=== PATIENT | male | born 1930 | race Caucasian/White ===

== ENCOUNTER 2016-10-24 14:47 | Emergency (ER) | payer MEDICARE, OTHER ==
[2016-09-03 10:34] VITALS: BMI 24.4
[~2016-10-24 14:47] MED LIST: CELEXA10 MG PO; SYNTHROID50 MCG PO
[2016-10-24 16:24] LABS: BASOPHILS 0.2 % (0.0-2.0); EOSINOPHILS 0.2 % (0-7); HEMATOCRIT 39.3 % (42.0-54.0); HEMOGLOBIN 12.6 g/dL (13.5-17.5); IMMATURE GRANULOCYTES 0.4 % (0-5); MCH 29.6 pg (26.0-34.0); MCHC 32.1 g/dL (31.0-37.0); MCV 92.3 fL (80.0-100.0); MEAN PLATELET VOLUME 10.4 fL (7.4-10.4); MONOCYTES 9.3 % (2-11); NEUTROPHILS 78.9 % (40-80); RBC 4.26 10x6/uL (4.20-6.10); RDW 13.7 % (11.5-14.5); WBC 5.1 10x3/uL (4.8-10.8)
[2016-10-24 16:29] LABS: PLATELET COUNT 65 10x3/uL (130-400)
[2016-10-24 16:32] LABS: CALC OSMOLALITY 279 mosm/kg (275-300); CALCIUM 8.2 mg/dL (8.5-10.1); CARBON DIOXIDE 30.1 mmol/L (21.0-32.0); CHLORIDE - SERUM 103 mmol/L (98-107); CREATININE - SERUM 0.9 mg/dL (0.6-1.3); GLUCOSE 120 mg/dL (74-106); POTASSIUM - SERUM 4.1 mmol/L (3.5-5.1); SODIUM 139 mmol/L (136-145); UREA NITROGEN 16 mg/dL (7-18); eGFR NON AFRICAN AMERICAN 85 mL/min (90-120)
[2016-10-24 16:41] LABS: PLATELET ESTIMATE DECREASED
== END 2016-10-24 18:00 | disposition home or self-care (01) ==
LOC: D.ER 14:47
PROVIDERS: Family Medicine
DX: M25.552 Pain in left hip (principal); M25.551 Pain in right hip; W01.0XXA Fall on same level from slipping, tripping and stumbling without subsequent striking against object, initial encounter; Y93.89 Activity, other specified; Y92.019 Unspecified place in single-family (private) house as the place of occurrence of the external cause; F41.9 Anxiety disorder, unspecified; C32.9 Malignant neoplasm of larynx, unspecified; E05.90 Thyrotoxicosis, unspecified without thyrotoxic crisis or storm; G25.81 Restless legs syndrome

== ENCOUNTER 2016-12-02 04:01 | Emergency (ER) | payer MEDICARE, OTHER ==
[2016-09-03 10:34] VITALS: BMI 24.4
[2016-12-02 05:37] LABS: APTT 26.6 SECONDS (22.8-39.4); BASOPHILS 0.1 % (0.0-2.0); EOSINOPHILS 0.2 % (0-7); HEMATOCRIT 40.4 % (42.0-54.0); HEMOGLOBIN 12.5 g/dL (13.5-17.5); IMMATURE GRANULOCYTES 0.4 % (0-5); INR 0.96 (0.85-1.17); LYMPHOCYTES 13.8 % (15-50); MCH 28.2 pg (26.0-34.0); MCHC 30.9 g/dL (31.0-37.0); MEAN PLATELET VOLUME 10.1 fL (7.4-10.4); MONOCYTES 6.7 % (2-11); NEUTROPHILS 78.8 % (40-80); PROTIME 12.6 SECONDS (11.6-15.0); RBC 4.44 10x6/uL (4.20-6.10); RDW 14.1 % (11.5-14.5); WBC 9.9 10x3/uL (4.8-10.8)
[2016-12-02 05:45] LABS: ALBUMIN 3.8 g/dL (3.4-5.0); ALKALINE PHOSPHATASE 40 U/L (46-116); ALT (SGPT) 25 U/L (10-68); CALC OSMOLALITY 284 mosm/kg (275-300); CALCIUM 8.2 mg/dL (8.5-10.1); CARBON DIOXIDE 29.3 mmol/L (21.0-32.0); CHLORIDE - SERUM 103 mmol/L (98-107); CREATININE - SERUM 0.8 mg/dL (0.6-1.3); GLUCOSE 144 mg/dL (74-106); POTASSIUM - SERUM 3.6 mmol/L (3.5-5.1); PROTEIN - SERUM 6.7 g/dL (6.4-8.2); SODIUM 141 mmol/L (136-145); UREA NITROGEN 15 mg/dL (7-18); eGFR NON AFRICAN AMERICAN > 90 mL/min (90-120)
[2016-12-02 05:48] LABS: PLATELET COUNT 113 10x3/uL (130-400)
== END 2016-12-02 10:03 | disposition home or self-care (01) ==
LOC: D.ER 04:01
PROVIDERS: Surgery
DX: S12.401A Unspecified nondisplaced fracture of fifth cervical vertebra, initial encounter for closed fracture (principal); W19.XXXA Unspecified fall, initial encounter; Y93.89 Activity, other specified; Y92.012 Bathroom of single-family (private) house as the place of occurrence of the external cause; S01.81XA Laceration without foreign body of other part of head, initial encounter; S00.11XA Contusion of right eyelid and periocular area, initial encounter; C32.9 Malignant neoplasm of larynx, unspecified; E05.90 Thyrotoxicosis, unspecified without thyrotoxic crisis or storm; G25.81 Restless legs syndrome

== ENCOUNTER → 2017-01-16 10:39 | Outpatient (CLI) | payer MEDICARE, OTHER ==
[2016-09-03 10:34] VITALS: BMI 24.4
[~2017-01-16 10:39] MED LIST changes: +HYDROCODON-ACE1 EAC7 PO
== END | disposition home or self-care (01) ==
LOC: D.LAB 01-15 15:30
DX: N39.0 Urinary tract infection, site not specified (principal)

== ENCOUNTER 2017-01-17 07:45 | Outpatient (CLI) | payer MEDICARE, OTHER ==
[2017-01-16 11:38] LABS: APPEARANCE CLEAR (CLEAR); BILIRUBIN NEGATIVE (NEGATIVE); COLOR YELLOW (YELLOW); GLUCOSE NEGATIVE (NEGATIVE); KETONE NEGATIVE (NEGATIVE); LEUKOCYTE ESTERASE NEGATIVE (NEGATIVE); NITRITE NEGATIVE (NEGATIVE); PROTEIN NEGATIVE (NEGATIVE); UROBILINOGEN NORMAL (NORMAL)
[~2017-01-17] VITALS: Ht 185.4 cm; Wt 79.5 kg
--- NOTE | ~2017-01-17 | HEMODYNAMI ---
PATIENT:THELMA AUGUSTINE MEDICAL RECORD: [id number] : 30 LOCATION:[facility] ADMISSION DATE: 01/17/17 Generatedon:01/17/201711:17 Patient name: THELMA AUGUSTINE Patient #: [id number] SSN: : 1930 Date of study: 01/17/2017 Page: Of Hemodynamic Procedure Report Patient Data Patient Demographics Procedure consent was obtained First Name: THELMA Gender: Male Last Name: DAVIDE : 1930 Middle Initial: CARLEE Age: 86 year(s) Patient #: [id number] Race: Unknown Additional ID: [id number] Contact details Address: [address] [place] [address] State: [place] City: [facility] Zip code: [address] Admission Admission Data Admission Date: 01/17/2017 Admission Time: 7:45 Procedure Procedure Types Cath Procedure Peripheral Cath Diagnostic Procedure Kyphoplasty Kyphoplasty Thoracic Procedure Description Procedure Date Procedure Date: 01/17/2017 Procedure Start Time: 10:30 Procedure Staff Name Function Dick Barkley MD Performing Physician Jumana Coelho RT Scrub Jan Pradhan RT Monitor Luz Haq RN Nurse Jumana Deras RN Nurse Procedure Data Cath Procedure Fluoroscopy Diagnostic fluoroscopy Total fluoroscopy Time: 8.2 time: 8.2 min min Diagnostic fluoroscopy Total fluoroscopy dose: dose: 3189 mGy 3189 mGy Procedure Medications Medication Administration Route Dosage Oxygen NC 10 l/min Ancef (1Gm/50ml NS) I.V.P.B 1 g Hemodynamics Rest Heart Rate: 77 (bpm) Snapshots Pre Cath Intra NCS Post Cath Vital Signs Time Heart Resp SPO2 NIBP (mmHg) Rhythm Pain Sedation Rate (ipm) (%) Status Level (bpm) 9:59:04 Aborted NSR 0 (11) 10(A) , No pain 10:04:03 Measuring NSR 0 (11) 10(A) , No pain 10:05:21 Disturbed NSR 0 (11) 10(A) , No pain 10:09:41 77 14 100 146/104(131) NSR 0 (11) 10(A) , No pain 10:13:57 68 18 97 128/68(98) NSR 0 (11) 10(A) , No pain 10:18:15 74 18 98 124/80(106) NSR 0 (11) 10(A) , No pain 10:22:31 94 120/68(104) NSR 0 (11) 10(A) , No pain 10:26:43 98 126/74(99) NSR 0 (11) 10(A) , No pain 10:30:53 78 18 98 133/82(108) NSR 0 (11) 10(A) , No pain 10:35:07 78 15 97 150/84(115) NSR 0 (11) 10(A) , No pain 10:39:25 80 19 98 154/89(129) NSR 0 (11) 10(A) , No pain 10:43:45 78 19 98 150/88(125) NSR 0 (11) 10(A) , No pain 10:48:01 79 20 98 153/92(117) NSR 0 (11) 10(A) , No pain 10:52:17 82 20 98 169/101(142) NSR 0 (11) 10(A) , No pain 10:56:40 83 20 98 171/106(146) NSR 0 (11) 10(A) , No pain 11:01:02 85 19 98 159/96(130) NSR 0 (11) 10(A) , No pain 11:05:20 82 16 98 170/104(146) NSR 0 (11) 10(A) , No pain 11:09:40 82 17 98 168/103(147) NSR 0 (11) 10(A) , No pain 11:14:00 79 17 98 159/93(129) NSR 0 (11) 10(A) , No pain Medications Time Medication Route Dose Verified Delivered Reason Notes Effectiv eness by by 10:11:41 Oxygen NC 10 Jumana Jumana used for l/min Augusta Augusta baker second RN 10:14:29 Ancef I.V.P.B 1 g Jumana Jumana Per (1Gm/50ml Augusta Augusta physician RADHA) RN returned item clerk Log Time Note 9:57:53 Luz Haq RN sent for patient. Start room use. :58: Time tracking: Regular hours :58:17 Plan of Care:Hemodynamics will remain stable., Cardiac rhythm will remain stable., Comfort level will be maintained., Respiratory function will remain adequate., Patient/ family verbilizes understanding of procedure., Procedure tolerated without complication., Recovers from procedure without complications.. 9:58:27 Patient received from Outpatients to IR Alert and oriented. Tansferred to table in Prone position. 9:58:29 Correct patient and procedure confirmed by team. 9:58:34 Correct patient and procedure confirmed by team. 9:58:35 Signed procedure consent form obtained from patient. 9:58:41 ECG and BP/O2 sat monitors applied to patient. 9:59:09 Use device set IR Diagnostic 9:59:10 Sterile Angiographic Pack opened to sterile field. 9:59:11 Bag Decanter opened to sterile field. 10:03:23 - 10:03:36 SEE ANESTHESIA FOR PRE PROCEDURE TIVA 10:03:45 - 10:09:17 ECG and BP/O2 sat monitors applied to patient. 10:09:21 Baseline sample Acquired. 10:09:25 Rhythm: sinus rhythm 10:09:36 Patient pain scale 0/10 NO PAIN. 10::39 Sharps counted by scrub and verified by R.N. 10:09:39 Alarms reviewed by R. N. 10:09:47 Thoracic area was prepped with chlora-prep and draped in sterile fashio n 10:11:41 Oxygen 10 l/min NC was administered by Jumana Deras RN; used for procedure; 10:14:29 Ancef (1Gm/50ml NS) 1 g I.V.P.B was administered by Jumana Deras RN ; Per physician; ::37 Physician arrived 10::37 --------ALL STOP TIME OUT------ 10::38 Final Timeout: patient, procedure, and site verified with staff and physician. All members of the team are in agreement. 10:29:42 Thoracic site verified by team. 10:29:55 Physical assessment completed. ASA score P 2 - A patient with mild systemic disease as per Dick Barkley MD. 10:30:02 Sedation plan: TIVA Propofol 10::21 Procedure started. 10:30:21 Full Disclosure recording started 10:30:47 Local anesthetic to right popliteal artery with Lidocaine 1% by Dick Barkley MD.INITIAL ACCESS ONLY 10:31:06 Kyphon Epress Kit 15/2 opened to sterile field. 10:31:09 Kyphon BONE BX DEVICE SZ2 opened to sterile field. 10:31:17 Kyphon BRICKLAYER HELPER KIT opened to sterile field. 11:04:13 Timer 1 started at 11:03 AM, stopped at 11:04 AM, duration 00:00:19 sec . 11:05:21 Procedure ended.(Physican Out) 11:06:00 Fluoroscopy time 08.20 minutes. 11:06:06 Flurop Dose total: 3189 11:06:06 Fluoroscopy dose: 3189 mGy 11:06:09 Sharps counted by scrub and verified by R.N. 11:06:19 Post Thoracic area:stable 11:06:27 Post-procedure physical assessment completed. ASA score P 2 - A patient with mild systemic disease as per Dick Barkley MD. 11:15:44 Post procedure instruction explained to patient.Patient verbalizes understanding. 11:15:45 Procedure and supply charges have been captured, reviewed, submitted an d are correct. 11:15:53 Report given to Outpatients. 11:15:59 Patient transfered to Outpatients with Bed. 11:17:18 Vital chart was stopped Device Usage Item Name Manufacture Quantity Catalog Hospital Part Current Minimal Lot# / Number Charge Number Stock Stock Serial# Code Sterile Cardinal 1 [id number] 5 Angiographic Health Pack Bag Decanter Microtek 1 [id number] 5 [employer] Kyphon Medtronic 1 [id number] 5 Epress Kit / Kyphon BONE Medtronic 1 [id number] 5 BX DEVICE SZ2 Kyphon Medtronic 1 [id number] 5 BRICKLAYER HELPER KIT Signature Audit Evangeline Stage Time Signature Unsigned Intra-Procedure 01/17/2017 Jan 11:17:15 AM Carolynn RT (R) (CV) Signatures Monitor : Jan Signature : Carolynn RT Date : Time : [address] [id number]
[~2017-01-17 07:45] MED LIST changes: -HYDROCODON-ACE1 EAC7 PO
[2017-01-17] MEDS ORDERED: HYDROCODON-ACE1 EAC7 PO (08:36)
[2017-01-17 08:41] VITALS: BP 137/77; Ht 185.4 cm; Wt 79.5 kg
[2017-01-17 09:02] LABS: BASOPHILS 0 % (0-2); EOSINOPHILS 2.5 % (0-7); HEMATOCRIT 36.7 % (42.0-54.0); HEMOGLOBIN 11.4 g/dL (13.5-17.5); IMMATURE GRANULOCYTES 0.2 % (0-5); LYMPHOCYTES 24.7 % (15-50); MCH 27.6 pg (26.0-34.0); MCHC 31.1 g/dL (31.0-37.0); MCV 88.9 fL (80.0-100.0); MEAN PLATELET VOLUME 9.9 fL (7.4-10.4); NEUTROPHILS 65.6 % (40-80); PLATELET COUNT 121 10x3/uL (130-400); RBC 4.13 10x6/uL (4.20-6.10); RDW 13.3 % (11.5-14.5); WBC 4.5 10x3/uL (4.8-10.8)
[2017-01-17 09:15] LABS: CALC OSMOLALITY 283 mosm/kg (275-300); CALCIUM 8.7 mg/dL (8.5-10.1); CARBON DIOXIDE 29.8 mmol/L (21.0-32.0); CHLORIDE - SERUM 107 mmol/L (98-107); CREATININE - SERUM 0.8 mg/dL (0.6-1.3); POTASSIUM - SERUM 3.9 mmol/L (3.5-5.1); SODIUM 142 mmol/L (136-145); UREA NITROGEN 15 mg/dL (7-18); eGFR NON AFRICAN AMERICAN > 90 mL/min (90-120)
[2017-01-17 09:24] LABS: GLUCOSE 96 mg/dL (74-106)
[2017-01-17 09:33] LABS: APTT 27.4 SECONDS (22.8-39.4); INR 0.99 (0.85-1.17)
--- NOTE | 2017-01-17 17:01 | NUR ---
1400 IV DC WITH CATHER TIP INTACT
--- NOTE | 2017-01-17 17:02 | NUR ---
1400 VS TAKEN AND PLACED ON POST OP SHEET
== END 2017-01-17 14:15 | disposition home or self-care (01) ==
LOC: D.OPS 07:45 → D.SP 10:00 → D.OPS 10:00
PROVIDERS: General Practice; Radiology Diagnostic Radiology
DX: S22.089A Unspecified fracture of T11-T12 vertebra, initial encounter for closed fracture (principal)

== ENCOUNTER → 2018-09-01 12:13 | Outpatient (CLI) | payer MEDICARE, OTHER ==
[2017-01-17 08:41] VITALS: BMI 23.1
[~2018-09-01 12:13] MED LIST changes: +HYDROCODON-ACE1 EAC7 PO
== END | disposition home or self-care (01) ==
LOC: D.RAD 12:13
DX: R05 Cough (principal)

== ENCOUNTER 2018-09-18 07:30 | Day surgery (SDC) | payer MEDICARE, OTHER ==
[~2018-09-18] VITALS: Ht 185.4 cm; Wt 82.7 kg
[2018-09-18 13:27] VITALS: BP 162/101; Ht 185.4 cm; Wt 82.7 kg
[2018-09-18 13:32] LABS: BASOPHILS 0.2 % (0-2); HEMATOCRIT 41.7 % (42.0-54.0); HEMOGLOBIN 13.3 g/dL (13.5-17.5); LYMPHOCYTES 23.4 % (15-50); MCH 27.8 pg (26.0-34.0); MCHC 31.9 g/dL (31.0-37.0); MCV 87.1 fL (80.0-100.0); MONOCYTES 8.2 % (2-11); NEUTROPHILS 66.2 % (40-80); PLATELET COUNT 136 10x3/uL (130-400); RBC 4.79 10x6/uL (4.20-6.10); RDW 13.7 % (11.5-14.5); WBC 6.6 10x3/uL (4.8-10.8)
[2018-09-18 13:42] LABS: CALC OSMOLALITY 276 mosm/kg (275-300); CALCIUM 8.8 mg/dL (8.5-10.1); CARBON DIOXIDE 29.4 mmol/L (21.0-32.0); CHLORIDE - SERUM 101 mmol/L (98-107); CREATININE - SERUM 0.8 mg/dL (0.6-1.3); GLUCOSE 90 mg/dL (74-106); POTASSIUM - SERUM 4.2 mmol/L (3.5-5.1); SODIUM 138 mmol/L (136-145); UREA NITROGEN 15 mg/dL (7-18); eGFR NON AFRICAN AMERICAN > 90 mL/min (90-120)
--- NOTE | 2018-09-18 14:30 | NUR ---
REC'D FROM SURGERY. FAMILY AT BEDSIDE. PAULA AND KAREN CORRAL SERVED.
--- NOTE | 2018-09-18 14:50 | NUR ---
CALLED DR WORLEY'S OFFICE REGARDING PATIENT VOIDING BEFORE DC D/T SURGERY DRAINING BLADDER RIGHT BEFORE BRING TO OUTPATIENT. DR WORLEY RELATED HE DOES NOT HAVE TO VOID PRIOR TO DC. RELATES NOTHING LEFT TO DRAIN.
--- NOTE | 2018-09-18 15:00 | NUR ---
TOLERATED FL TRAY. IV DC'D WITH CATHETER INTACT.
--- NOTE | 2018-09-18 15:25 | NUR ---
WRITTEN AND VERBAL DC INST. GIVEN TO PT. VERBALIZED UNDERSTANDING.
--- NOTE | 2018-09-18 15:30 | NUR ---
DC'D HOME WITH FAMILY VIA PRIVATE VEHICLE. TAKEN TO VEHICLE VIA WC. STABLE AT TIME OF DC.
--- NOTE | 2018-09-19 10:22 | OP ---
PATIENT NAME: THELMA AUGUSTINE MEDICAL RECORD: [id number] :[birth year] LOCATION:[facility] ADMISSION DATE: SURGEON: DOMINIK WORLEY MD DATE OF OPERATION: 09/18/2018 SURGEON: Dominik Worley MD ANESTHESIA: TIVA by Venancio Wilson CRNA DIAGNOSIS: Elevated PSA at 12.46. PROCEDURES: Transrectal ultrasound and prostate biopsy. FINDINGS: Twenty six-gram prostate with intraprostatic calcifications and hypoechoic areas. SPECIMENS: Prostate biopsy cores. BLOOD LOSS: Minimal. CLINICAL HISTORY: This is an 87-year-old male who was found to have an elevated PSA of 12.46 on 07/04/2017. He comes to have this evaluated with a prostate biopsy. There is no family history of prostate cancer. He does not have any significant voiding symptoms. HE IS ALLERGIC TO TETANUS AND DIPHTHERIA TOXOID. He was given Ancef on-call to the OR. DESCRIPTION OF PROCEDURE: The patient was given IV sedation. He was then placed into dorsal lithotomy position. The transrectal ultrasound probe was introduced and prostate size measurements were obtained. The first time we ran the prostate size measurements, we obtained a value of 24 grams. We tried it again and obtained a value of 26 grams. Therefore, his prostate size thus seemed to be within the 20-gram to 30-gram range. Internal hypoechoic areas were seen as well as prostatic stones. Sextant biopsies were obtained with at least 3 specimens from each sextant. The right side of the prostate seems to be far larger than the left side of the prostate. Once all the specimens were obtained, the procedure was terminated. The patient's bladder was seen to be full on the ultrasound. We inserted a 14-Kazakh red rubber catheter to drain the bladder. I will see the patient in followup next week to review the pathology results with him. The catheterization was only an in-and-out catheterization. TRANSINT:[id number] Voice Confirmation ID: [id number] DOCUMENT ID: [id number] DOMINIK WORLEY MD at 1022 CC: [id number] DICTATION DATE: 09/18/18 1428 TRANSMISSION INSPECTOR: 09/18/18 1849 [facility] 09/18/18 [place] [address]
== END 2018-09-18 15:30 | disposition home or self-care (01) ==
LOC: D.OPS 07:30 → D.PAN 11:30 → D.OPS 11:30
PROVIDERS: Anesthesiology
DX: C61 Malignant neoplasm of prostate (principal); Z01.812 Encounter for preprocedural laboratory examination

== ENCOUNTER → 2018-10-03 08:14 | Outpatient (CLI) | payer MEDICARE, OTHER ==
[2018-09-18 13:27] VITALS: BMI 24.0
== END | disposition home or self-care (01) ==
LOC: D.NM 08:14
DX: C61 Malignant neoplasm of prostate (principal)

== ENCOUNTER → 2019-03-11 08:42 | Outpatient (CLI) | payer MEDICARE, OTHER ==
[2018-09-18 13:27] VITALS: BMI 24.0
[2019-03-13 20:07] LABS: CYCLIC CITRULL PEPTIDE IGG/IGA 3 units (0-19)
[2019-03-16 15:11] LABS: ANCA - ANTIMYELOPEROXIDASE <9.0 U/mL (0.0-9.0); ANCA - ANTIPROTEINASE 3 <3.5 U/mL (0.0-3.5); ANCA - ATYPICAL <1:20 titer (Neg:<1:20); ANCA - CYTOPLASMIC <1:20 titer (Neg:<1:20); ANCA - PERINUCLEAR <1:20 titer (Neg:<1:20)
== END | disposition home or self-care (01) ==
LOC: D.RT 08:42
PROVIDERS: ATTEND Internal Medicine Pulmonary Disease
DX: J44.9 Chronic obstructive pulmonary disease, unspecified (principal)

== ENCOUNTER 2019-04-27 08:00 | Outpatient (CLI) | payer MEDICARE, OTHER ==
[2018-09-18 13:27] VITALS: BMI 24.0
== END 2019-04-27 23:59 | disposition home or self-care (01) ==
LOC: D.MAMMO 08:00
PROVIDERS: ATTEND Nurse Practitioner Family
DX: N63.0 Unspecified lump in unspecified breast (principal); N64.4 Mastodynia

== ENCOUNTER → 2019-07-13 09:37 | Outpatient (CLI) | payer MEDICARE, OTHER ==
[2018-09-18 13:27] VITALS: BMI 24.0
== END | disposition home or self-care (01) ==
LOC: D.CT 09:37
PROVIDERS: ATTEND Internal Medicine Pulmonary Disease
DX: R93.89 Abnormal findings on diagnostic imaging of other specified body structures (principal)

== ENCOUNTER 2019-09-24 15:18 | Inpatient (IN) | payer MEDICARE, OTHER ==
[~2019-09-24] VITALS: Ht 185.4 cm; Wt 81.8 kg
[2019-09-24] MEDS ORDERED: FUROSEMIDE20 MG PO (15:27)
[2019-09-24 15:44] LABS: BASOPHILS 0.1 % (0-2); EOSINOPHILS 1.5 % (0-7); HEMOGLOBIN 12.3 g/dL (13.5-17.5); IMMATURE GRANULOCYTES 0.1 % (0-5); LYMPHOCYTES 13.4 % (15-50); MCH 28.3 pg (26.0-34.0); MCHC 31.5 g/dL (31.0-37.0); MCV 89.9 fL (80.0-100.0); MEAN PLATELET VOLUME 9.4 fL (7.4-10.4); MONOCYTES 7.4 % (2-11); NEUTROPHILS 77.5 % (40-80); RBC 4.34 10x6/uL (4.20-6.10); RDW 14.7 % (11.5-14.5); WBC 6.9 10x3/uL (4.8-10.8)
[2019-09-24 15:47] LABS: PLATELET COUNT 101 10x3/uL (130-400)
[2019-09-24 15:58] LABS: INR 1.18 (0.85-1.17)
[2019-09-24 16:01] LABS: CALC OSMOLALITY 282 mosm/kg (275-300); CARBON DIOXIDE 30.8 mmol/L (21.0-32.0); CHLORIDE - SERUM 105 mmol/L (98-107); CREATININE - SERUM 0.9 mg/dL (0.6-1.3); GLUCOSE 103 mg/dL (74-106); POTASSIUM - SERUM 4.2 mmol/L (3.5-5.1); SODIUM 142 mmol/L (136-145); UREA NITROGEN 13 mg/dL (7-18); eGFR NON AFRICAN AMERICAN 84 mL/min (90-120)
[2019-09-24 16:16] LABS: ALBUMIN 3.7 g/dL (3.4-5.0); ALKALINE PHOSPHATASE 79 U/L (46-116); ALT (SGPT) 19 U/L (10-68); CREATINE KINASE 72 UL (21-232); PRO BNP 6117 pg/mL (0-450); PROTEIN - SERUM 6.9 g/dL (6.4-8.2); TROPONIN-I 0.016 ng/mL (0.000-0.060)
--- NOTE | 2019-09-24 18:27 | NUR ---
INFLUENZA SWAB SENT TO LAB AT THIS TIME
[2019-09-24 21:25] VITALS: BP 134/89
--- NOTE | 2019-09-24 22:03 | NUR ---
RECIEVED REPORT FROM QASIM PICKARD, ER NURSE.
[2019-09-24] MEDS ORDERED: SYNTHROID25 MCG PO (22:07)
[2019-09-24] MEDS ORDERED: K-DUR20 MEQ PO (22:09)
--- NOTE | 2019-09-24 22:30 | NUR ---
RECIEVED PT TO 2121 FROM ER VIA . PT A&O. RESPERATIONS EVEN ON O2 AT 2 LITERS VIA ND. IV TO LEFT AC WITH ZITHROMAX INFUSING, IV SITE CLEAN AND DRY. HISTORY AND MED REC OBTAINED. FRESH ICE WATER GIVEN, PERSONAL BELONGINGS PLACED IN CLOSET, PT DECLINED TO HAVE VALUABLES LOCK IN ER SAFE. PT DENIES PAIN OR NEEDS, BED LOW, CL IN REACH.
[2019-09-25 01:48] VITALS: BMI 24.4
[2019-09-25 06:01] LABS: BASOPHILS 0 % (0-2); EOSINOPHILS 0 % (0-7); HEMATOCRIT 37.2 % (42.0-54.0); HEMOGLOBIN 11.6 g/dL (13.5-17.5); LYMPHOCYTES 8.7 % (15-50); MCH 27.8 pg (26.0-34.0); MCHC 31.2 g/dL (31.0-37.0); MCV 89.2 fL (80.0-100.0); MONOCYTES 0.6 % (2-11); NEUTROPHILS 90.7 % (40-80); PLATELET COUNT 104 10x3/uL (130-400); RBC 4.17 10x6/uL (4.20-6.10)
[2019-09-25 06:07] LABS: WBC 4.8 10x3/uL (4.8-10.8)
[2019-09-25 06:26] LABS: CALC OSMOLALITY 285 mosm/kg (275-300); CARBON DIOXIDE 26.2 mmol/L (21.0-32.0); CHLORIDE - SERUM 106 mmol/L (98-107); CREATININE - SERUM 0.8 mg/dL (0.6-1.3); GLUCOSE 140 mg/dL (74-106); SODIUM 142 mmol/L (136-145); UREA NITROGEN 15 mg/dL (7-18); eGFR NON AFRICAN AMERICAN > 90 mL/min (90-120)
--- NOTE | 2019-09-25 08:05 | NUR ---
ASSEESSMENT DONE. DENIES NEEDS
[2019-09-25 08:48] VITALS: BP 118/69
--- NOTE | 2019-09-25 09:21 | NUR ---
I have reviewed this patient and I concur with the Shift Assessment completed by the Licensed Practical Nurse today this shift.
[2019-09-25 12:26] VITALS: BP 135/84
[2019-09-25 13:18] VITALS: Ht 185.4 cm; Wt 81.8 kg
[2019-09-25 16:02] VITALS: BP 150/94
--- NOTE | 2019-09-25 19:15 | NUR ---
RECEIVED REPORT, WILL ASSUME CARE OF PT, PT DOESNT UNDERSTAND WHY HE IS HERE, EXPLAINED HE IS HERE FOR PNA, SR-91, LAC @50, WANTS TO BE SL WHEN ANTIBONIC IS COMPLETE, BED IS LOW, SRX2, CALL LIGHT IN REACH, WILL CONTINUE PLAN OF CARE
[2019-09-25 20:00] VITALS: BP 126/81
[2019-09-26 04:00] VITALS: BP 134/83
--- NOTE | 2019-09-26 05:11 | NUR ---
I have reviewed this patient and I concur with the Shift Assessment completed by the Licensed Practical Nurse today this shift.
[2019-09-26 05:19] LABS: BASOPHILS 0 % (0-2); EOSINOPHILS 0 % (0-7); HEMATOCRIT 35.5 % (42.0-54.0); HEMOGLOBIN 11.2 g/dL (13.5-17.5); IMMATURE GRANULOCYTES 0.2 % (0-5); LYMPHOCYTES 6.9 % (15-50); MCH 28.1 pg (26.0-34.0); MCHC 31.5 g/dL (31.0-37.0); MEAN PLATELET VOLUME 9.8 fL (7.4-10.4); MONOCYTES 4.3 % (2-11); NEUTROPHILS 88.6 % (40-80); PLATELET COUNT 93 10x3/uL (130-400); RBC 3.99 10x6/uL (4.20-6.10); RDW 15.1 % (11.5-14.5)
[2019-09-26 05:21] LABS: WBC 8.1 10x3/uL (4.8-10.8)
[2019-09-26 05:34] LABS: PLATELET ESTIMATE DECREASED
[2019-09-26 05:54] LABS: CALC OSMOLALITY 287 mosm/kg (275-300); CALCIUM 8.3 mg/dL (8.5-10.1); CARBON DIOXIDE 28.4 mmol/L (21.0-32.0); CHLORIDE - SERUM 107 mmol/L (98-107); CREATININE - SERUM 0.8 mg/dL (0.6-1.3); GLUCOSE 134 mg/dL (74-106); POTASSIUM - SERUM 4.1 mmol/L (3.5-5.1); PRO BNP 9066 pg/mL (0-450); SODIUM 142 mmol/L (136-145); eGFR NON AFRICAN AMERICAN > 90 mL/min (90-120)
[2019-09-26 05:57] LABS: UREA NITROGEN 20 mg/dL (7-18)
--- NOTE | 2019-09-26 07:50 | NUR ---
ALERT AND ORIENTED. TELEMERTY SHOWS SR. LEFT AC SL. DENIES ANY NEEDS. SR UP WITH CALL LIGHT IN REACH. WILL MONITOR
[2019-09-26 10:12] VITALS: BP 114/91
[2019-09-26] MEDS ORDERED: MEDROL DOSE PACK4 MG PO (12:07)
[2019-09-26] MEDS ORDERED: ZPAK PO (12:07)
--- NOTE | 2019-09-26 12:46 | NUR ---
PT UNSURE OF NAME OF NEBULIZED MEDICATION HE USES AT HOME. STATES "THEY SEND IT FROM [facility]".
--- NOTE | 2019-09-26 12:53 | MORECARE ---
CASE MANAGEMENT DISCHARGE SUMMARY PATIENT: THELMA AUGUSTINE UNIT: [id number] ADM DATE: 09/24/19 AGE: 88 : 30 SEX: M ROOM/BED: D.2122 AUTHOR: PHILIPPE ALEJANDRA PHYSICIAN: REFERRING PHYSICIAN: THUAN ANDUJAR MD DATE OF SERVICE: 09/26/19 Discharge Plan Patient Name: THELMA AUGUSTINE [facility] [facility] 1930 Planned Disposition: Anticipated Discharge Date: Discharge Date: Expected LOS: Initial Reviewer: [email or web address] Initial Review Date: 09/26/2019 Generated: 09/26/19 1:53 pm DCPIA - Discharge Planning Initial Assessment Updated by [email or web address]: Amy Denson on 09/26/19 12:52 pm * Is the patient Alert and Oriented? Yes * PCP IAN * Preadmission Environment Home with Family * ADLs Independent * Other Equipment 02, PORT, [facility] * Community resources currently utilized None * Additional services required to return to the preadmission environment? No * Can the patient safely return to the preadmission environment? Yes * Has this patient been hospitalized within the prior 30 days at any hospital? No Patient Name: THELMA AUGUSTINE Page 52424 at 1253 All edits/amendments must be made on the electronic document DICTATION DATE: 09/26/19 1253 ELECTRICAL LOGGING ENGINEER: MARY 09/26/19 1253 RPT#: [id number] DC DATE: STATUS: ADM IN [facility] [address] [place] [address] END OF REPORT
--- NOTE | 2019-09-26 13:00 | MORECARE ---
CASE MANAGEMENT DISCHARGE SUMMARY PATIENT: THELMA AUGUSTINE UNIT: [id number] ADM DATE: 09/24/19 AGE: 88 : 30 SEX: M ROOM/BED: D.2122 AUTHOR: PHILIPPE ALEJANDRA PHYSICIAN: REFERRING PHYSICIAN: THUAN ANDUJAR MD DATE OF SERVICE: 09/26/19 Discharge Plan Patient Name: THELMA AUGUSTINE Facility: [facility]:[place] : 1930 Planned Disposition: Anticipated Discharge Date: Discharge Date: Expected LOS: Initial Reviewer: [email or web address] Initial Review Date: 09/26/2019 Generated: 09/26/19 2:00 pm Comments DCP- Discharge Planning Updated by [email or web address]: Amy Denson on 09/26/19 11:[address] Patient Name: THELMA AUGUSTINE Admission Status: ER Accout number: [id number] Admission Date: 09-24-2019 : 1930 Admission Diagnosis: Attending: THUAN ANDUJAR Current LOS: 2 Anticipated DC Date: Planned Disposition: Primary Insurance: MEDICARE A & B Discharge Planning Comments: CM MET WITH PATIENT AFTER OBTAINING VERBAL CONSENT. STATES PLANS TO DC TO HOME TODAY WITH . DENIES NEEDS FOR HH, REHAB OR EQUIPMENT. STATES WILL NEED TO TAKE A TAXI HOME BECAUSE HIM AND HIS DO NOT DRIVE. RN WILL NEED TO CALL TAXI FOR HIM. HE LIVES AT [facility]. Ssn/Ssbn Weapons Equipment Operator: Amy Denson DCPIA - Discharge Planning Initial Assessment Updated by [email or web address]: Amy Denson on 09/26/19 12:52 pm * Is the patient Alert and Oriented? Yes * PCP IAN * Preadmission Environment Home with Family * ADLs Independent * Other Equipment 02, PORT, [facility] * Community resources currently utilized None * Additional services required to return to the preadmission environment? No * Can the patient safely return to the preadmission environment? Yes * Has this patient been hospitalized within the prior 30 days at any hospital? No Last DP export: 09/26/19 11:53 a Patient Name: THELMA AUGUSTINE Page 99630 at 1300 All edits/amendments must be made on the electronic document DICTATION DATE: 09/26/19 1300 MEDICAL REFERRAL COORDINATOR: MARY 09/26/19 1300 RPT#: [id number] DC DATE: STATUS: ADM IN [facility] [address] [place] [address] END OF REPORT
--- NOTE | 2019-09-26 13:00 | NUR ---
I have reviewed this patient and I concur with the Shift Assessment completed by the Licensed Practical Nurse today this shift.
--- NOTE | 2019-09-26 13:23 | NUR ---
PT DISCHARGED. IV DCD WITH TIP INTACT. INSTRUCTIONS GIVEN TO PT. TO PRIVATE CAR PER WHEELCHAIR
--- NOTE | 2019-09-26 16:09 | MORECARE ---
CASE MANAGEMENT DISCHARGE SUMMARY PATIENT: THELMA AUGUSTINE UNIT: [id number] ADM DATE: 09/24/19 AGE: 88 : 30 SEX: M ROOM/BED: D.2122 AUTHOR: PHILIPPE ALEJANDRA PHYSICIAN: REFERRING PHYSICIAN: THUAN ANDUJAR MD DATE OF SERVICE: 09/26/19 Discharge Plan Patient Name: THELMA AUGUSTINE Facility: [facility]:[place] : 1930 Planned Disposition: Anticipated Discharge Date: Discharge Date: 09/26/2019 Expected LOS: Initial Reviewer: [email or web address] Initial Review Date: 09/26/2019 Generated: 09/26/19 5:09 pm Comments DCP- Discharge Planning Updated by [email or web address]: Amy Denson on 09/26/19 11:[address] Patient Name: THELMA AUGUSTINE Admission Status: ER Accout number: [id number] Admission Date: 09-24-2019 : 1930 Admission Diagnosis: Attending: THUAN ANDUJAR Current LOS: 2 Anticipated DC Date: Planned Disposition: Primary Insurance: MEDICARE A & B Discharge Planning Comments: CM MET WITH PATIENT AFTER OBTAINING VERBAL CONSENT. STATES PLANS TO DC TO HOME TODAY WITH . DENIES NEEDS FOR HH, REHAB OR EQUIPMENT. STATES WILL NEED TO TAKE A TAXI HOME BECAUSE HIM AND HIS DO NOT DRIVE. RN WILL NEED TO CALL TAXI FOR HIM. HE LIVES AT [facility]. Metrology Engineer: Amy Denson DCPIA - Discharge Planning Initial Assessment Updated by [email or web address]: Amy Denson on 09/26/19 12:52 pm * Is the patient Alert and Oriented? Yes * PCP IAN * Preadmission Environment Home with Family * ADLs Independent * Other Equipment 02, PORT, [facility] * Community resources currently utilized None * Additional services required to return to the preadmission environment? No * Can the patient safely return to the preadmission environment? Yes * Has this patient been hospitalized within the prior 30 days at any hospital? No Last DP export: 09/26/19 12:00 p Patient Name: THELMA AUGUSTINE Page 95176 at 1609 All edits/amendments must be made on the electronic document DICTATION DATE: 09/26/191608 FERMENTER CHAMPAGNE: MARY 09/26/19 160 RPT#: [id number] DC DATE:09/26/19 STATUS: DIS IN [facility] [address] [place] [address] END OF REPORT
== END 2019-09-26 13:29 | disposition home or self-care (01) | DRG 190 ==
LOC: D.ER 15:18 → D.M2 18:38
PROVIDERS: Family Medicine; ADMIT Family Medicine; ATTEND Family Medicine
DX: J44.0 Chronic obstructive pulmonary disease with (acute) lower respiratory infection (principal); J18.9 Pneumonia, unspecified organism; I50.9 Heart failure, unspecified

== ENCOUNTER → 2019-10-15 09:07 | Outpatient (CLI) | payer MEDICARE, OTHER ==
[2019-09-25 13:18] VITALS: BMI 24.4
[~2019-10-15 09:07] MED LIST changes: +FUROSEMIDE20 MG PO; +K-DUR20 MEQ PO; +MEDROL DOSE PACK4 MG PO; +SYNTHROID25 MCG PO; +ZPAK PO
== END | disposition home or self-care (01) ==
LOC: D.ECHO 09:00
PROVIDERS: ATTEND Internal Medicine Pulmonary Disease
DX: R06.00 Dyspnea, unspecified (principal)

== ENCOUNTER 2019-12-03 11:07 | Outpatient (CLI) | payer MEDICARE, OTHER ==
[~2019-12-03] VITALS: Ht 185.4 cm; Wt 82.7 kg
--- NOTE | ~2019-12-03 | HEMODYNAMI ---
PATIENT:THELMA AUGUSTINE MEDICAL RECORD: [id number] : 30 LOCATION:[facility] ADMISSION DATE: 12/03/19 Generatedon:12/03/201914:04 Patient name: THELMA AUGUSTINE Patient #: [id number] SSN: : 1930 Date of study: 12/03/2019 Page: Of Hemodynamic Procedure Report Patient Data Patient Demographics Procedure consent was obtained First Name: THELMA Gender: Male Last Name: DAVIDE : 1930 Middle Initial: CARLEE Age: 89 year(s) Patient #: [id number] Race: Unknown Additional ID: [id number] Contact details [address]: [address] [place] [address] State: [place] City: [place] Zip code: [address] Past Medical History History of disease Date Diagnosis Comments COPD Valvular heart disease Allergies Allergen Reaction Date Comments Reported Other allergy 12/03/2019 TETANUS AND DIPHTHERIA TOXOIDS Admission Admission Data Admission Date: 12/03/2019 Admission Time: 11:07 Arrival Date: 12/02/2018 Arrival Time: 0:00 Height (in.): 72.83 BSA: 2.07 (m2) Height (cm.): 185 BMI: 24.25 (kg/m2) Weight (lbs.): 182.98 Weight (kg.): 83 Lab Results Lab Result Date: 12/03/2019 Lab Result Time: 0:00 Biochemistry Name Units Result Min Max BUN mg/dl 19 --(----)*- 7 18 Creatinine mg/dl 1 --(--*-)-- 0.6 1.3 eGFR ml/min 75 *-(----)-- 90 120 NONAFRICAN CBC Name Units Result Min Max Hematocrit % 41.3 -*(----)-- 42 54 Hemoglobin g/dl 13.1 -*(----)-- 13.5 17.5 Procedure Procedure Types Cath Procedure Diagnostic Procedure LHC LHC w/Coronaries Aortic Root Angiography Sedation Charges Moderate Sedation up to 15 minutes Procedure Description Procedure Date Procedure Date: 12/03/2019 Procedure Start Time: 13:41 Procedure End Time: 14:02 Procedure Staff Name Function John Tinoco MD Performing Physician Padmini Gamboa RT Monitor Ame Saldaña RT Scrub Ciro Becerra RN Nurse Indication Angina Procedure Data Cath Procedure Fluoroscopy Diagnostic fluoroscopy Total fluoroscopy Time: 5.3 time: 5.3 min min Diagnostic fluoroscopy Total fluoroscopy dose: dose: 1020 mGy 1020 mGy Contrast Material Contrast Material Type Amount (ml) Isovue 300 100 Entry Location Entry Primary Successful Side Size Upsize Upsize Entry Closure Rankin ccessful Closure Location (Fr) 1 (Fr) 2 (Fr) Remarks Device Remarks Radial Right 6 Fr Mechanical artery Short Compression Femoral Right 5 Fr Exoseal artery Estimated blood loss: 5 ml Diagnostic catheters Device Type Used For End Catheter Placement DIAGNOSTIC [place] 110cm 5 Multi-vessel Fr catheter ([id number]) Angiography Procedure Complications No complications Procedure Medications Medication Administration Route Dosage 0.9% NaCl I.V. 100 ml/hr Oxygen etCO2 Nasal cannula 2 l/min Heparin Flush Bag added to field 2 bags (1000units/500ml NS) Lidocaine 2% added to field 20 Radial Cocktail added to field 1 syringe (Verapamil 2mg/Nitro 400mcg/Heparin 1500units) Benadryl I.V. 50 mg Versed I.V. 1 mg Fentanyl I.V. 50 mcg Radial Cocktail I.A. 1 syringe (Verapamil 2mg/Nitro 400mcg/Heparin 1500units) Hemodynamics Rest BSA: 2.07 (m2) HGB: 13.1 (g/dl) O2 Consumption: Estimated: 223.55 (ml/min) O2 Co nsumption indexed: Estimated:108 (ml/min/m) Heart Rate: 57 (bpm) Pressure Samples Time Site Value (mmHg) Purpose Heart Use Rate(bpm) 13:55 LV 120/18,5 Snapshot 76 13:56 AO (92) Pullback 88 Gradients Valve Time Site Site Mean SEP/DFP Peak To Heart Use 1 2 (mmHg) (sec/min) Peak Rate (mmHg) (bpm) Aortic 13:56 LV AO 2 6 88 (92) Calculations Valve P-P Mean Valve Index Valve Source Name Gradient Area Flow (cm2) Aortic 2 2 Snapshots Pre Cath Intra NCS Post Cath Vital Signs Time Heart Resp SPO2 etCO2 NIBP (mmHg) Rhythm Pain Sedation Rate (ipm) (%) (mmHg) Status Level (bpm) 13:31:43 70 20 97 30.7 142/98(131) NSR 0 (11) 10(A) , No pain 13:35:53 71 19 95 26.1 141/97(104) NSR 0 (11) 10(A) , No pain 13:39:59 65 18 91 34.4 134/89(117) NSR 0 (11) 10(A) , No pain 13:43:57 62 19 92 29.9 121/87(118) NSR 0 (11) 9(A) , No pain 13:48:02 61 19 92 32.9 115/84(104) NSR 0 (11) 9(A) , No pain 13:52:08 64 12 92 35.1 121/84(100) NSR 0 (11) 9(A) , No pain 13:56:20 111 11 92 41.1 107/63(70) NSR 0 (11) 9(A) , No pain 14:00:19 66 10 94 29.9 125/88(108) NSR 0 (11) 9(A) , No pain Medications Time Medication Route Dose Verified Delivered Reason Notes Effectiveness by by 13:33:21 0.9% NaCl I.V. 100 Ciro Ciro Per ml/hr Mariam Becerra physician RN RN 13:33:31 Oxygen etCO2 2 l/min Ciro Ciro for low 02 Nasal Lorigan Lorigan sats cannula RN RN 13:33:43 Heparin Flush added 2 bags Ciro Ciro used for Bag to Lorigan Lorigan procedure (1000units/500ml field RN RN NS) 13:33:54 Lidocaine 2% added 20ml Ciro Ciro for local to vial Lorigan Lorigan anesthetic field RN RN 13:34:06 Radial Cocktail added 1 Ciro Ciro used for (Verapamil to syringe Lorigan Lorigan procedure 2mg/Nitro field RN RN 400mcg/Heparin 1500units) 13:39:43 Benadryl I.V. 50 mg Ciro Ciro Per Mariam Becerra physician RN RN 13:39:51 Versed I.V. 1 mg Ciro Ciro for sedation Mariam Becerra RN RN 13:40:00 Fentanyl I.V. 50 mcg Ciro Ciro for sedation Mariam Becerra RN RN 13:43:04 Radial Cocktail I.A. 1 Ciro Lopez for (Verapamil syringe Mariam Moncada John vasodilation 2mg/Nitro NEERAJ ALLEN 400mcg/Heparin 1500units) Procedure Log Time Note 13:06:51 Informed consent obtained and on chart 13:07:11 Procedure Status Elective Heart Cath (OP). 13:07:12 Time tracking: Regular hours (M-F 7:00 - 5:00) 13:07:15 Plan of Care:Hemodynamics will remain stable., Cardiac rhythm will remain stable., Comfort level will be maintained., Respiratory function will remain adequate., Patient/ family verbilizes understanding of procedure., Procedure tolerated without complication., Recovers from procedure without complications.. 13:08:52 Padmini Gamboa RT(R) sent for patient. Start room use. 13:11:06 Patient allergic to Other allergyTETANUS AND DIPHTHERIA TOXOIDS 13:11:37 Lab Result : BUN 19 mg/dl 13:11:37 Lab Result : Creatinine 1 mg/dl 13:11:37 Lab Result : Hemoglobin 13.1 g/dl 13:11:37 Lab Result : eGFR NONAFRICAN 75 ml/min 13:11:37 Lab Result : Hematocrit 41.3 % 13:11:46 Patient Weight : 182.98 lbs 13:11:49 Patient Height : 72.83 inches 13:11:52 Arrival Date: 12/02/2018 12:00:00 AM 13:13:39 Indication : Angina 13:14:23 Patient received from Pre/Post Procedure Room to CCL 1 Alert and oriented. Tansferred to table in Supine position. 13:14:27 Warm blankets applied, and lesli hugger turned on for patient comfort. 13:14:28 Correct patient and procedure confirmed by team. 13:14:29 ECG and BP/O2 sat monitors applied to patient. 13:30:48 Vital chart was started 13:30:49 Baseline sample Acquired. 13:30:54 Rhythm: sinus rhythm 13:30:56 Full Disclosure recording started 13:31:01 H&P Date Dictated: 12/03/2019 Within 30 days and on chart., H&P Addendum completed by physician on day of procedure. (MUST COMPLETE FOR ALL OUTPATIENTS). 13:31:02 Pre-procedure instructions explained to patient. 13:31:03 Pre-op teaching completed and patient verbalized understanding. 13:31:04 Family in waiting room. 13:31:05 Patient NPO since Midnight. 13:31:08 Is the patient allergic to Iodine/contrast media? No. 13:31:10 Was the patient premedicated? No 13:31:12 Is patient on blood thinner?No 13:31:14 Patient diabetic? No. 13:31:19 Previous problem with sedation/anesthesia? No ? 13:31:21 Snore? Yes 13:31:23 Sleep apnea? No 13:31:26 Deviated septum? No 13:31:27 Opens mouth fully? Yes 13:31:27 Sticks out tongue? Yes 13:31:37 Airway obstruction? Yes [place]EVER 13:31:40 Dentures? No ? 13:31:43 Pre procedure: right dorsailis pedis pulse 2+ Normal; easily identifiable; not easily obliterated 13:31:47 Pre procedure: left dorsailis pedis pulse 2+ Normal; easily identifiable; not easily obliterated 13:31:51 Patient pain scale 0/10 ?. 13:32:00 IV patent on arrival in left forearm with 0.9% NaCl at [facility]. 13:32:10 Lab results completed and on chart. 13:33:21 0.9% NaCl 100 ml/hr I.V. was administered by Ciro Becerra RN; Per physician; Verbal order read back and verified. 13:33:31 Oxygen 2 l/min etCO2 Nasal cannula was administered by Ciro Becerra RN; for low 02 sats; Verbal order read back and verified. 13:33:43 Heparin Flush Bag (1000units/500ml NS) 2 bags added to field was administered by Ciro Becerra RN; used for procedure; Verbal order read back and verified. 13:33:54 Lidocaine 2% 20ml vial added to field was administered by Ciro Becerra RN; for local anesthetic; Verbal order read back and verified. 13:34:06 Radial Cocktail (Verapamil 2mg/Nitro 400mcg/Heparin 1500units) 1 syringe added to field was administered by Ciro Becerra RN; used for procedure; Verbal order read back and verified. 13:35:19 Risk of Mortality: 0.4 13:35:24 Risk of blood transfusion: 0.6 13:35:32 Risk of MERRICK: 9.5 13:35:38 Right Radial & Right Groin area was prepped with chlora-prep and draped in sterile fashion 13:35:39 Alarms reviewed by R. N. 13:35:40 Sharps counted by scrub and verified by R.N. 13:35:50 Physician arrived 13:35:50 --------ALL STOP TIME OUT------ 13:35:51 Final Timeout: patient, procedure, and site verified with staff and physician. All members of the team are in agreement. 13:35:55 Right Radial & Right Groin site verified by team. 13:36:09 Fire Safety Assessment: A--An alcohol-based skin anteseptic being used preoperatively., C--Open oxygen or nitrous oxide is being used., D--An ESU, laser, or fiber-optic light is being used. 13:36:12 Physical assessment completed. ASA score P 2 - A patient with mild systemic disease as per John Tinoco MD. 13:36:21 2) 60-89 Mildly reduced kidney function, and other findings (as for stage 1) point to kidney disease. 13:36:27 Maximum allowable contrast dose (3.7 X eGFR X 0.75)208 ml. 13:36:32 Sedation plan: IV Moderate Sedation Medication:Versed, Fentanyl 13:36:38 Use device set Radial Dx or PCI 13:36:40 ACIST Syringe (59620) opened to sterile field. 13:36:40 Medline Cath Pack ([id number]) opened to sterile field. 13:36:41 Bag Decanter () opened to sterile field. 13:36:41 ACIST Hand Control (01677) opened to sterile field. 13:36:41 ACIST Manifold (94860) opened to sterile field. 13:36:42 Tegaderm 4 x 4 (1626W) opened to sterile field. 13:36:43 MBrace Wrist Support ([id number]) opened to sterile field. 13:36:45 SHEATH 6FR RAIN (7121229) opened to sterile field. 13:36:46 EMERALD Guide Wire (541-745) opened to sterile field. 13:39:43 Benadryl 50 mg I.V. was administered by Ciro Becerra RN; Per physician; Verbal order read back and verified. 13:39:51 Versed 1 mg I.V. was administered by Ciro Becerra RN; for sedation; Verbal order read back and verified. 13:39:59 Zero performed for pressure channel P1 13:40:00 Fentanyl 50 mcg I.V. was administered by Ciro Becerra RN; for sedation; Verbal order read back and verified. 13:41:18 Procedure started. 13:41:29 Local anesthetic to right radial artery with Lidocaine 2% by John Tinoco MD.INITIAL ACCESS ONLY 13:41:45 A 6 Fr Short sheath was inserted into the Right Radial artery 13:42:56 A DIAGNOSTIC [place] 110cm 5 Fr catheter ([id number]) was advanced over the wire and used for Multi-vessel Angiography. 13:43:04 Radial Cocktail (Verapamil 2mg/Nitro 400mcg/Heparin 1500units) 1 syringe I.A. was administered by John Tinoco MD; for vasodilation; Verbal order read back and verified. 13:44:48 GLIDE WIRE ANGLE 260cm ([id number]) opened to sterile field. 13:46:44 GLIDE wire advanced. 13:47:05 Wire removed. 13:47:37 Catheter removed. 13:48:29 Difficulty performing LHC using radial access; preparing for femoral access 13:48:54 Local anesthetic to right femoral artery with Lidocaine 2% by John Tinoco MD.ADDITIONAL ACCESS 13:49:24 SHEATH 5FR [place] (JMD214) opened to sterile field. 13:49:25 DIAGNOSTIC Multipack 5Fr catheter set ([id number]) opened to sterile field. 13:50:01 A 5 Fr sheath was inserted into the Right Femoral artery 13:50:23 5 Fr jl 4\ guide catheter was inserted over the wire 13:51:34 LCA angiography performed. 13:51:37 Injector settings: Ml/sec: 3, Volume: 6, 13:53:26 Catheter removed. 13:53:37 5 Fr 3drc guide catheter was inserted over the wire 13:54:06 RCA angiography performed. 13:54:09 Injector settings: Ml/sec: 3, Volume: 6, 13:54:14 ACCDominant side:Right 13:55:13 5 Fr pigtail guide catheter was inserted over the wire 13:56:11 LV hemodynamics recorded. 13:56:14 LV gram done using KRISHNA 13:56:17 Injector settings: Ml/sec: 5, Volume: 15, 13:56:29 EF : 40 % 13:56:48 Aortic Root visualized 13:57:36 Catheter removed. 13:57:48 Sheath removed intact; hemostasis achieved with Exoseal to the Right Femoral artery. 13:57:54 Sheath removed intact; hemostasis achieved with Mechanical Compression to the Right Radial artery. 13:57:56 Procedure ended.(Physican Out) 13:58:38 Fluoroscopy time 05.30 minutes. 13:58:43 Fluoroscopy dose: 1020 mGy 13:58:43 Flurop Dose total: 1020 13:59:16 Dose Area Product 33915 mGy/cm. 13:59:24 Contrast amount:Isovue 300 100ml. 13:59:27 Maximum allowable dose exceeded? No. 13:59:29 Sharps counted by scrub and verified by R.N. 13:59:32 Donaldson band inflated with 10cc of air. 13:59:34 Insertion/operative site no bleeding no hematoma. 13:59:41 Post-op/insertion site Right Femoral artery dressed using a 4 x 4 and Tegaderm. 13:59:50 Post right radial artery:stable 13:59:57 Post Procedure Pulses reassessed and unchanged 14:00:02 Post procedure rhythm: unchanged. 14:00:05 Estimated blood loss: 5 ml 14:00:07 Post procedure instruction explained to patient.Patient verbalizes understanding. 14:00:07 Patient needs reinforcement of post procedure teaching. 14:01:39 Procedure type changed to Cath procedure, Diagnostic procedure, C, [facility] w/Coronaries, Aortic Root Angiography, Sedation Charges, Moderate Sedation up to 15 minutes 14:01:41 Procedure and supply charges have been captured, reviewed, submitted and are correct. 14:01:46 Procedure Complication : No complications 14:01:49 Vital chart was stopped 14:01:52 [facility] Findings: MVD- MD will discuss options w/ pt 14:01:54 Operative report dictated upon procedure completion. 14:01:55 See physician's report for complete and final results. 14:01:59 Report given to Pre/Post Procedure Room. 14:02:01 Patient transfered to Pre/Post Procedure Room with Stretcher. 14:02:03 Procedure ended. 14:02:03 Full Disclosure recording stopped 14:02:07 End room use (Document Last) Device Usage Item Name Manufacture Quantity Catalog Hospital Part Current Minima l Lot# / Number Charge Number Stock Stock Serial# Code ACIST Acist 1 36517 102591 204467 264329 20 Syringe Medical (36069) Systems Inc Medline Medline 1 [id number] 664328 94509 888545 5 Cath Pack ([id number]) Bag Microtek 1 2001S 751424 67938 924016 5 Decanter Medical Inc. () ACIST Hand Acist 1 06337 889936 401008 603706 5 Control Medical (58437) Systems Inc ACIST Acist 1 07522 654624 509734 090102 5 Manifold Medical (32825) Systems Inc Tegaderm 4 3M 1 1626W 166797 258947 216230 5 x 4 (1626W) MBrace Advanced 1 140-0250-00 976626 08751 296794 5 Wrist Vascular Support Dynamics ([id number]) SHEATH 6FR Cardinal 1 2602228 566955 6385620 220196 5 [facility] Health (5117860) EMERALD Cardinal 1 502-455 767533 074235 840767 5 Guide Wire Health (502-455) DIAGNOSTIC Terumo 1 40-5053 990812 969519 921277 5 [place] 110cm 5 Fr catheter (318913) GLIDE WIRE Terumo 1 PD7660 181895 868292 345235 5 ANGLE 260cm (PB1160) SHEATH 5FR Terumo 1 [id number] 961254 122765 622710 5 [place] (KZL220) DIAGNOSTIC Cardinal 1 [id number] 048985 00159 959467 30 Predikt 5Fr catheter set (SW6699) Signature Audit [place] Stage Time Signature Unsigned Intra-Procedure 12/03/2019 Padmini Gamboa 2:03:31 PM RT(R) Intra-Procedure 12/03/2019 Ciro 2:03:59 PM Mariam PICKARD Intra-Procedure 12/03/2019 John Moncada 2:04:38 [place] [address]
[2019-12-03] MEDS ORDERED: ASPIRIN81 MG PO (11:37)
[2019-12-03 11:53] VITALS: BP 146/75; Ht 185.4 cm; Wt 82.7 kg
[2019-12-03 12:05] LABS: BASOPHILS 0.2 % (0-2); EOSINOPHILS 3.4 % (0-7); HEMATOCRIT 41.3 % (42.0-54.0); HEMOGLOBIN 13.1 g/dL (13.5-17.5); IMMATURE GRANULOCYTES 0.2 % (0-5); LYMPHOCYTES 19.7 % (15-50); MCH 28.9 pg (26.0-34.0); MCHC 31.7 g/dL (31.0-37.0); MCV 91.2 fL (80.0-100.0); NEUTROPHILS 69.5 % (40-80); PLATELET COUNT 101 10x3/uL (130-400); RBC 4.53 10x6/uL (4.20-6.10); RDW 14.7 % (11.5-14.5); WBC 5.6 10x3/uL (4.8-10.8)
[2019-12-03 12:23] LABS: ALT (SGPT) 22 U/L (10-68); CALC OSMOLALITY 282 mosm/kg (275-300); CALCIUM 8.7 mg/dL (8.5-10.1); CARBON DIOXIDE 29.9 mmol/L (21.0-32.0); CHLORIDE - SERUM 105 mmol/L (98-107); CHOL - HDL RATIO 2.3 ratio (2.3-4.9); CHOLESTEROL, TOTAL 151 mg/dL (0-200); GLUCOSE 93 mg/dL (74-106); HDL CHOLESTEROL 65 mg/dL (32-96); LDL CHOLESTEROL 79 mg/dL (0-100); LDL-HDL RATIO 1.2 ratio (1.5-3.5); POTASSIUM - SERUM 4.3 mmol/L (3.5-5.1); SODIUM 141 mmol/L (136-145); TRIGLYCERIDE 37 mg/dL (30-200); UREA NITROGEN 19 mg/dL (7-18); eGFR NON AFRICAN AMERICAN 75 mL/min (90-120)
--- NOTE | 2019-12-03 14:20 | NUR ---
PT ARRIVED BY STRETCHER. PLACED ON MONITORS. ASSESSMENT COMPLETED. VSS. CALL LIGHT WITHIN REACH.
--- NOTE | 2019-12-03 14:35 | NUR ---
PT RESTING COMFORTABLY. VSS. RIGHT GROIN DRESSING C/D/I. NO S/S OF HEMATOMA NOTED. RIGHT RADIAL Z BAND IN PLACE. NO BLEEDING/HEMATOMA NOTED.
[2019-12-03] MEDS ORDERED: LOSARTAN-HCTZ1 EAC1 PO (14:50)
--- NOTE | 2019-12-03 15:05 | NUR ---
RIGHT GROIN DRESSING C/D/I. NO S/S OF HEMATOMA NOTED. RIGHT WRIST Z BAND IN PLACE. NO BLEEDING/HEMATOMA NOTED. PT RESTING COMFORTABLY. NO NEEDS AT THIS TIME. DENIES NAUSEA/PAIN AT THIS TIME.
--- NOTE | 2019-12-03 15:20 | NUR ---
2cc OF AIR REMOVED FROM Z BAND. NO BLEEDING/HEMATOMA NOTED. RIGHT GROIN DRESSING C/D/I. NO S/S OF HEMATOMA NOTED. PT'S HEAD OF BED INC TO 3O DEGREES. TOLERATED WELL. SET UP WITH SANDWICH TRAY AND DRINK AT THIS TIME.
--- NOTE | 2019-12-03 15:35 | NUR ---
2cc OF AIR REMOVED FROM Z BAND. NO BLEEDING/HEMATOMA NOTED. RIGHT GROIN DRESSING C/D/I. NO S/S OF HEMATOMA NOTED.
--- NOTE | 2019-12-03 15:45 | NUR ---
4cc OF AIR REMOVED FROM Z BAND. NO BLEEDING/HEMATOMA NOTED. CALL LIGHT WITHIN REACH. RIGHT GROIN DRESSING C/D/I. NO S/S OF HEMATOMA NOTED.
--- NOTE | 2019-12-03 16:00 | NUR ---
Z BAND REMOVED AND DRESSING APPLIED. NO BLEEDING/HEMATOMA NOTED. PIV D/C'D WITH CATH TIP INTACT. TOLERATED WELL. VSS. RIGHT GROIN DRESSING C/D/I. NO S/S OF HEMATOMA NOTED. ASSISTED PT WITH GETTING DRESSED. RIGHT WRIST BRACE IN PLACE.
--- NOTE | 2019-12-03 16:15 | NUR ---
PT TO RESTROOM. VOIDED WITHOUT DIFFICULTY. DISCUSSED DISCHARGE INSTRUCTIONS WITH PT. HE VOICED UNDERSTANDING.
--- NOTE | 2019-12-03 16:30 | NUR ---
RIGHT WRIST DRESSING C/D/I. NO S/S OF HEMATOMA NOTED. RIGHT GROIN DRESSING C/D/I. NO S/S OF HEMATOMA NOTED. PT TAKEN DOWN TO VEHICLE BY WHEELCHAIR. NO S/S OF DISTRESS NOTED. ALL BELONGINGS AND PAPERWORK IN HAND. NEW PRESCRIPTION FOR HYZAAR CALLED IN TO [facility] PER PT REQUEST. THEY REPORT THEY WILL DELIVER TO PT TOMORROW.
--- NOTE | 2019-12-04 08:48 | OP ---
PATIENT NAME: THELMA AUGUSTINE MEDICAL RECORD: [id number] :30 LOCATION:D.[facility] ADMISSION DATE: SURGEON: REJI VILLA MD DATE OF OPERATION: 12/03/2019 PROCEDURE: Left heart catheterization, selective coronary angiography, right femoral artery approach plus aortic root injection to assess aortic insufficiency, Radial was too tortuous. FINDINGS: Left ventriculography in 30-degree KRISHNA view shows mild global hypo with EF mildly reduced at 40%. Aortic root injection was performed to assess aortic insufficiency. This showed mild aortic insufficiency. There is no evidence of gradient across the aortic valve itself. CORONARY ANATOMY: LEFT MAIN: Left main is free of disease. LAD: Has mild luminal irregularities with no flow obstructive disease. CIRCUMFLEX: Free of disease. RIGHT CORONARY ARTERY: Huge vessel, free of disease. IMPRESSION: Mild nonischemic cardiomyopathy, placed on an ARB at this point. Further recommendations based on the above. TRANSINT:[id number] Voice Confirmation ID: [id number] DOCUMENT ID: [id number] REJI VILLA MD at 0848 CC: [id number] DICTATION DATE: 12/03/19 1409 GAS DESULFURIZER: 12/03/19 1526 DEP CLI 12/03/19 [place] [id number] [place] [address]
== END 2019-12-03 16:30 | disposition home or self-care (01) ==
LOC: D.CATH 11:07
PROVIDERS: ATTEND Internal Medicine Interventional Cardiology
DX: I20.9 Angina pectoris, unspecified (principal); I10 Essential (primary) hypertension; I35.1 Nonrheumatic aortic (valve) insufficiency; J44.9 Chronic obstructive pulmonary disease, unspecified